=== PATIENT | female | born 1995 | race African-American/Black ===

== ENCOUNTER 2016-06-26 13:26 | Emergency (ER) | payer SELFPAY ==
[2016-06-26 13:33] VITALS: BMI 32.9
[2016-06-26 14:30] VITALS: BP 105/66; PULSE 91; TEMP 97.6
[2016-06-26 14:57] LABS: URINE APPEARANCE CLEAR; URINE BILIRUBIN NEGATIVE (NEGATIVE); URINE BLOOD NEGATIVE (NEGATIVE); URINE COLOR YELLOW; URINE GLUCOSE (UA) NEGATIVE (NEGATIVE); URINE KETONE TRACE (NEGATIVE); URINE LEUK ESTERASE NEGATIVE (NEGATIVE); URINE NITRITE NEGATIVE (NEGATIVE); URINE PROTEIN NEGATIVE (NEGATIVE); URINE UROBILINOGEN 2.0 E.U/dl E.U./dl (0.2-1.0)
[2016-06-26 15:16] LABS: URINE MARIJUANA THC NEGATIVE ng/ml (CUTOFF=50)
== END 2016-06-26 14:43 | disposition left against medical advice (07) ==
LOC: JER 13:26
DX: O26.892 Other specified pregnancy related conditions, second trimester (principal); R10.30 Lower abdominal pain, unspecified; Z3A.24 24 weeks gestation of pregnancy
CPT/HCPCS: 80307; 81003; 87086; 99281-25

== ENCOUNTER 2017-08-30 22:50 | Emergency (ER) | payer OTHER ==
[2017-08-30 23:17] VITALS: BP 116/58; PULSE 89; TEMP 98.1; BMI 28.8
--- NOTE | 2017-08-30 23:56 | PDOC ---
History of Present Illness - General Chief Complaint: Pain Stated Complaint: BACK PAIN Time Seen by Provider: 08/30/17 23:47 History Source: Patient Exam Limitations: No Limitations - History of Present Illness Initial Comments: 21 yo F approximately 2 months (had a prior confirmatory ultrasound) presents with pelvic cramping pain. She states the pain was moderate when she arrived in ED but now the pain is mild. She denies fever, chills, urinary urgency. +Urinary frequency. She has not been taking enough fluids PO. She also states that she prefers not to wear underwear, which she was counseled to do in a past . Denies vomiting, diarrhea, vaginal bleeding. Past History - Past Medical History Allergies/Adverse Reactions: Allergies Allergy/AdvReac Type Severity Reaction Status Date / Time No Known Allergies Allergy Verified 09/07/16 02:37 Home Medications: Ambulatory Orders Cephalexin Monohydrate [Keflex -] 500 mg PO BID #10 capsule 08/31/17 - Reproductive History Is Patient Now?: Yes - Suicide/Smoking/Psychosocial Hx Smoking History: Never smoked Have you smoked in the past 12 months: No Information on smoking cessation initiated: No Hx Alcohol Use: No Drug/Substance Use Hx: No Substance Use Type: None Review of Systems - Review of Systems Able to Perform ROS?: Yes Comments:: GENERAL/CONSTITUTIONAL: No fever or chills. No weakness. HEAD, EYES, EARS, NOSE AND THROAT: No change in vision. No ear pain or discharge. No sore throat. CARDIOVASCULAR: No chest pain or shortness of breath. RESPIRATORY: No cough, wheezing, or hemoptysis. GASTROINTESTINAL: No nausea, vomiting, diarrhea or constipation. GENITOURINARY: No dysuria, frequency, or change in urination. MUSCULOSKELETAL: No joint or muscle swelling or pain. No neck or back pain. SKIN: No rash NEUROLOGIC: No headache, vertigo, loss of consciousness, or change in strength/ sensation. ENDOCRINE: No increased thirst. No abnormal weight change. HEMATOLOGIC/LYMPHATIC: No anemia, easy bleeding, or history of blood clots. ALLERGIC/IMMUNOLOGIC: No hives or skin allergy. *Physical Exam - Vital Signs Last Vital Signs Temp Pulse Resp BP Pulse Ox 98.1 F 89 18 116/58 99 08/30/17 23:12 08/30/17 23:12 08/30/17 23:12 08/30/17 23:12 08/30/17 23:12 - Physical Exam Comments: GENERAL: Awake, alert, and fully oriented, in no acute distress HEAD: No signs of trauma EYES: PERRLA, EOMI, sclera anicteric, conjunctiva clear ENT: Auricles normal inspection, hearing grossly normal, nares patent, oropharynx clear without exudates. Dry mucosa NECK: Normal ROM, supple, no lymphadenopathy, JVD, or masses LUNGS: Breath sounds equal, clear to auscultation bilaterally. No wheezes, and no crackles HEART: Regular rate and rhythm, normal S1 and S2, no murmurs, rubs or gallops ABDOMEN: Soft, +minimal suprapubic tenderness. Normoactive bowel sounds. No guarding, no rebound. No masses EXTREMITIES: Normal range of motion, no edema. No clubbing or cyanosis. No cords, erythema, or tenderness NEUROLOGICAL: Cranial nerves II through XII grossly intact. Normal speech, normal gait SKIN: Warm, Dry, normal turgor, no rashes or lesions noted. Medical Decision Making - Medical Decision Making 08/31/17 00:08 Pt initially presented c/o abd cramping, stating it improved on arrival in ED. She states she does not wish to have any further workup, as she is feeling better. Urine shows +LE, and it is cloudy and malodorous. Will treat with keflex. Counseled patient to wear underwear to prevent infections. Also counseled her to drink plenty of fluids to avoid dehydration, as it may cause cramping. If her pain returns or worsens, return to the ED immediately. *DC/Admit/Observation/Transfer Diagnosis at time of Disposition: Abdominal pain in - Discharge Dispostion Disposition: HOME Condition at time of disposition: Stable Decision to Admit order: No - Referrals - Patient Instructions Printed Discharge Instructions: DI for Abdominal Pain -- Early - Post Discharge Activity
[2017-08-31 00:01] LABS: URINE APPEARANCE SLCLOUDY; URINE BILIRUBIN NEGATIVE (<2.0 mg/dL); URINE COLOR YELLOW; URINE GLUCOSE (UA) NEGATIVE (NEGATIVE); URINE KETONE TRACE (NEGATIVE); URINE NITRITE NEGATIVE (NEGATIVE); URINE PROTEIN NEGATIVE (NEGATIVE)
[2017-08-31 00:07] LABS: HCG,QUALITATIVE URINE POSITIVE; URINE LEUK ESTERASE 1+ (NEGATIVE)
[2017-08-31 00:10] LABS: CALCIUM OXALATE CRYSTALS RARE /hpf (NONE SEEN); EPI CELLS MODERATE /HPF (FEW); URINE BACTERIA FEW /hpf (NONE SEEN); URINE HYALINE CAST 1 /lpf; URINE MUCUS FEW
== END 2017-08-31 00:17 | disposition home or self-care (01) ==
LOC: JER 22:50
DX: O26.891 Other specified pregnancy related conditions, first trimester (principal); O23.31 Infections of other parts of urinary tract in pregnancy, first trimester; R10.2 Pelvic and perineal pain; Z3A.08 8 weeks gestation of pregnancy
CPT/HCPCS: 81003; 81015; 84703; 99283-25

== ENCOUNTER 2018-10-27 08:47 | Emergency (ER) | payer OTHER ==
[2018-10-27] MEDS ORDERED: SODIUM CHLORIDE 0.9% 1000 ML INFUS.BAG IV ONE ×3 (08:58→13:35)
[2018-10-27 08:59] VITALS: BMI 28.6
[2018-10-27] MEDS ORDERED: morphine CARPU-JECT 4 MG/1 ML DISP.SYRIN IVPUSH ONE ×3 (09:07→14:24)
[2018-10-27] MEDS ORDERED: morphine SULFATE 4 MG/ML VIAL ONE ×2 (09:08→14:36)
[2018-10-27 09:14] LABS: BASO % 0.7 % (0-2.0); EOS % 2.9 % (0-4.5); HEMATOCRIT 36.2 % (32.4-45.2); HEMOGLOBIN 12.3 GM/dL (10.7-15.3); LYMPH % 34.3 % (8-40); MCHC 33.9 g/dl (32.0-36.0); MEAN CELL VOLUME 73.9 fl (80-96); MONO % 4.9 % (3.8-10.2); NEUT % 57.2 % (42.8-82.8); PLATELET COUNT 298 K/MM3 (134-434); RDW 17.5 % (11.6-15.6); WHITE BLOOD COUNT 9.4 K/mm3 (4.0-10.0)
--- NOTE | 2018-10-27 09:16 | PDOC ---
History of Present Illness - General Chief Complaint: Pain, Acute Stated Complaint: RT SIDE PAIN,VOMITING Time Seen by Provider: 10/27/18 08:54 History Source: Patient, EMS Exam Limitations: No Limitations - History of Present Illness Initial Comments: 10/27/18 09:11 23F with PMHx of UTI, multiple abortions (10 abortions, 2 miscarriages, 1 live ) who presents to the ER with sudden onset RUQ and R flank pain. The patient states that she developed sudden onset RUQ and R flank pain which is constant, sharp, radiating from her RUQ to her R flank, associated with nausea and vomiting w/o fever, chills, dysuria, hematuria. Pt is on depot shot and states LMP 2 months ago, denies recent sexual activity. Denies trauma, EtOH, tobacco, and illicit drug use. Denies ever having pain like this in the past. Admits to umbilical hernia surgery "when she was a baby" but has not had any abdominal surgeries since. Past History - Past Medical History Allergies/Adverse Reactions: Allergies Allergy/AdvReac Type Severity Reaction Status Date / Time No Known Allergies Allergy Verified 03/02/18 11:10 Home Medications: Ambulatory Orders NK [No Known Home Medication] 03/02/18 COPD: No - Suicide/Smoking/Psychosocial Hx Smoking History: Current every day smoker Have you smoked in the past 12 months: Yes Number of Cigarettes Smoked Daily: 2 Information on smoking cessation initiated: No Hx Alcohol Use: No Drug/Substance Use Hx: No Substance Use Type: None Review of Systems - Review of Systems Able to Perform ROS?: Yes Comments:: 10/27/18 09:27 GENERAL/CONSTITUTIONAL: No fever or chills. No weakness. HEAD, EYES, EARS, NOSE AND THROAT: No change in vision. No ear pain or discharge. No sore throat. CARDIOVASCULAR: No chest pain, palpitations, or lightheadedness. RESPIRATORY: No cough, wheezing, shortness of breath, or hemoptysis. GASTROINTESTINAL: + for RUQ abd pain, nausea, and vomiting. No diarrhea or constipation. GENITOURINARY: + for R flank pain. No dysuria, frequency, hematuria, or change in urination. MUSCULOSKELETAL: No joint or muscle swelling or pain. No neck or back pain. SKIN: No rash or lesions. NEUROLOGIC: No headache, numbness, tingling, focal weakness, loss of consciousness, or change in strength/sensation. Is the patient limited Samoan proficient: No *Physical Exam - Vital Signs Last Vital Signs Temp Pulse Resp BP Pulse Ox 100 H 24 H 138/90 100 10/27/18 08:54 10/27/18 08:54 10/27/18 08:54 10/27/18 08:54 - Physical Exam Comments: 10/27/18 09:29 GENERAL: Well developed, well nourished. Awake and alert. No acute distress. HEENT: Normocephalic, atraumatic. Hearing grossly normal. Moist mucous membranes. PERRLA, EOMI. No conjunctival pallor. Sclera are non-icteric. NECK: Supple. Full ROM. No JVD. CARDIOVASCULAR: Regular rate and rhythm. No murmurs, rubs, or gallops. PULMONARY: No evidence of respiratory distress. Lungs clear to auscultation bilaterally. No wheezing, rales or rhonchi. ABDOMINAL: Soft. TTP in RUQ, + Goldberg's sign. Non-distended. No rebound or guarding. GENITOURINARY: R CVA tenderness. MUSCULOSKELETAL: Normal range of motion at all joints. No bony deformities or tenderness. EXTREMITIES: No cyanosis. No clubbing. No edema. No calf tenderness or swelling. SKIN: Warm and dry. Normal capillary refill. No rashes. No jaundice. NEUROLOGICAL: Alert, awake, appropriate. Cranial nerves 2-12 grossly intact. Normal speech. Gait is normal without ataxia. PSYCHIATRIC: Cooperative. Good eye contact. Appropriate mood and affect. ED Treatment Course - LABORATORY CBC & Chemistry Diagram: 10/27/18 09:05 10/27/18 09:05 - RADIOLOGY Radiology Studies Ordered: Category Date Time Status ABDOMEN US -LIMITED [US] Stat Ultrasound 10/27/18 09:08 Ordered KIDNEY / RENAL US [US] Stat Ultrasound 10/27/18 09:08 Ordered - Medications Given in the ED: ED Medications Discontinued Medications Generic Name Dose Route Start Last Admin Trade Name Freq PRN Reason Stop Dose Admin Sodium Chloride 1,000 ml 10/27/18 08:58 10/27/18 09:07 Normal Saline - IV 10/27/18 08:59 1,000 ml ONCE ONE Administration Medical Decision Making - Medical Decision Making 10/27/18 09:30 23F with a PMH of multiple abortions and UTI's who presents to the ER with RUQ pain and R flank pain concerning for nephrolithiasis vs cholecystitis vs other RUQ pathology. Pending labs and imaging including CBC, CMP, lipase, RUQ US and renal US. 4mg morphine ordered for pt comfort. 10/27/18 10:17 Labs WNL. Both US negative. Pt continues to be tender and states that "it might be gas because I was holding in my farts all of yesterday". However, due to tenderness, will obtain CTAP. Pt aware. Upreg negative. Lipase negative. Will give 1 g acetaminophen IV. 10/27/18 13:01 Pt continues to have tenderness. CTAP shows elongated gallbladder without evidence of acute pathology. Dr. Orlando, surgery, paged as pt has intractable abdominal pain w/ nausea. Will give 2mg morphine. 10/27/18 13:35 Case d/w Dr. Orlando, surgery, who recommends continuing hydration and will see the patient at bedside. 10/27/18 16:36 Dr. Orlando saw pt and does not believe this is related to her gallbladder. Pt now requesting flexiril and states that she's had this pain before (she initially told me she has never had this pain before). Will d/c with PCP f/u. *DC/Admit/Observation/Transfer Diagnosis at time of Disposition: Abdominal pain Qualifiers: Abdominal location: right upper quadrant Qualified Code(s): R10.11 - Right upper quadrant pain Back pain Qualifiers: Back pain location: low back pain Chronicity: unspecified Back pain laterality : unspecified Sciatica presence: without sciatica Qualified Code(s): M54.5 - Low back pain - Discharge Dispostion Disposition: HOME Condition at time of disposition: Stable Decision to Admit order: No - Referrals Referrals: Elliott Holguin MD [Primary Care Provider] - - Patient Instructions Printed Discharge Instructions: DI for Abdominal Pain-Adult Additional Instructions: Your ER visit is not complete until your follow up with your primary care physician. Please follow up with your primary care physician in 1-2 days. Please return to the ER if you have any signs or symptoms of chest pain, shortness of breath, uncontrollable fever, chills, nausea, vomiting, numbness, tingling, or weakness in any part of your body, changes in vision, or slurred speech. Please take your medications as prescribed. Please return to the ER if symptoms persist, worsen, or new symptoms arise. - Post Discharge Activity
[2018-10-27 09:21] LABS: URINE APPEARANCE CLOUDY; URINE BILIRUBIN NEGATIVE (NEGATIVE); URINE COLOR YELLOW; URINE GLUCOSE (UA) NEGATIVE (NEGATIVE); URINE KETONE NEGATIVE (NEGATIVE); URINE LEUK ESTERASE NEGATIVE (NEGATIVE); URINE NITRITE NEGATIVE (NEGATIVE); URINE PROTEIN NEGATIVE (NEGATIVE)
[2018-10-27 09:28] LABS: INR 0.91 (0.83-1.09); PROTHROMBIN TIME (PATIENT) 10.7 SEC (9.7-13.0)
[2018-10-27 09:48] LABS: ALBUMIN 3.9 g/dl (3.4-5.0); BILIRUBIN,TOTAL 0.5 mg/dL (0.2-1); BLOOD UREA NITROGEN 15.1 mg/dL (7-18); CALCIUM 9.4 mg/dL (8.5-10.1); POTASSIUM 3.9 mmol/L (3.5-5.1); TOT PROT 7.5 g/dl (6.4-8.2)
[2018-10-27] MEDS ORDERED: ACETAMINOPHEN 1000 MG/100 ML VIAL (NON FORMULARY) IVPB ONE (10:15)
[2018-10-27] MEDS ORDERED: SIMETHICONE 80 MG TAB.CHEW (FP) PO ONE (10:15)
--- NOTE | 2018-10-27 10:21 | PDOC ---
Attending Attestation - Resident Resident Name: Obdulio Huntley - ED Attending Attestation I have performed the following: I have examined & evaluated the patient, The case was reviewed & discussed with the resident, I agree w/resident's findings & plan, Exceptions are as noted - HPI HPI: 10/27/18 10:16 23 F , presenting to ED with right sided abdominal pain. Pt reports sudden onset cramping pain today, localized to her RUQ and radiating to her back. Denies F/C. Endorses vomiting. Denies diarrhea. Pt has had previous umbilical hernia surgery as a child. No other surgeries. - Physicial Exam PE: 10/27/18 10:20 "GENERAL: Awake, alert, and fully oriented, in no acute distress. HEAD: No signs of trauma EYES: PERRLA, EOMI, sclera anicteric, conjunctiva clear ENT: Auricles normal inspection, hearing grossly normal, nares patent, oropharynx clear without exudates. Moist mucosa NECK: Nontender, no stepoffs, Normal ROM, supple, no lymphadenopathy, JVD, or masses LUNGS: Breath sounds equal, clear to auscultation bilaterally. No wheezes, and no crackles HEART: Regular rate and rhythm, normal S1 and S2, no murmurs, rubs or gallops ABDOMEN: + diffuse tenderness, most pronounced in RUQ, normoactive bowel sounds. No guarding, no rebound. No masses EXTREMITIES: Normal range of motion, no edema. No clubbing or cyanosis. No cords, erythema, or tenderness NEUROLOGICAL: Cranial nerves II through XII intact. 5/5 strength and sensation in all extremities, Normal speech, normal gait, normal cerebellar function SKIN: Warm, Dry, normal turgor, no rashes or lesions noted. - Medical Decision Making 10/27/18 10:20 23 F with diffuse abdominal pain, most focal in RUQ, with N+V. - US negative for alvina - Labs unremarkable - Will obtain CT scan - GI cocktail, pain control 10/27/18 16:34 CT notable for large GB Dr. Orlando consulted. Per her evaluation, no surgical emergency. Pt re-evaluated, pain is improved. Pt tolerating PO. Pt encouraged to f/u with her PMD. Pt is well appearing, with normal vitals. Clinically stable for DC at this time. I discussed the physical exam findings, ancillary test results and final diagnoses with the patient. I answered all of the patient's questions. The patient was satisfied with the care received and felt comfortable with the discharge plan and treatment plan. The patient agrees to follow up with the primary care physician within 24-72 hours.
[2018-10-27] MEDS ORDERED: ONDANSETRON 4 MG/2 ML VIAL IVPUSH ONE (10:22)
[2018-10-27] MEDS ORDERED: ONDANSETRON 4 MG/2 ML VIAL ONE (10:25)
[2018-10-27] MEDS ORDERED: ACETAMINOPHEN INJECTION 100 ML IVPB ONE (10:41)
[2018-10-27 13:24] VITALS: BP 138/86; PULSE 91
[2018-10-27] MEDS ORDERED: CYCLOBENZAPRINE HCL 10 MG TABLET (FP) PO ONE (16:38)
[2018-10-27] MEDS ORDERED: CYCLOBENZAPRINE HCL 10 MG TABLET (FP) ONE (16:43)
--- NOTE | 2018-10-27 16:47 | CONSULT ---
Consult Consult Specialty:: General Surgery Referred by:: Carlton Huntley Reason for Consultation:: RUQ pain, N/V - History of Present Illness Chief Complaint: RUQ pain, n/v History of Present Illness: 23yo F with no reported PMH, PSH of only umbilical hernia repair as baby, presented with RUQ pain beginning yesterday morning, radiating around laterally toward back. This was associated with some nausea but no vomiting until she came to ER today, when she did have some yellow emesis. Last night, she had Northern [place] food, rice and peas, etc. She admits the pain comes every 3 weeks or so , and she has been seen in ER and the ER at the hospital down the street for it within the last month. She said they wanted to do a CT scan, but she was scared of the IV contrast; she did have CT here. She usually takes a muscle relaxant prn which helps, or some other pill (not sure what). Her last Rx for these was at [facility] in [address], and she thinks the other pill was a steroid. When asked what she takes these for, she indicates the RUQ pain. She reports having scoliosis, and going to PT at [facility] three times weekly/every other day for it. She also states she has had injections for her back/the pain. Asked about her PMD, she admits she has not been in "a long time. " She has had IV tylenol and 6mg morphine in ER, and still c/o pain. She is asking for a muscle relaxant. She also fell asleep twice during our conversation and my exam. Her labs are all normal, though do indicate some dehydration. US and CT showed very elongated gallbladder with stones, but no clear signs of cholecystitis. No acute findings on CT otherwise. She has had IV fluids as well. She states she is in a [facility], with three kids, and "there is a lot going on in my life right now." She did recently get a Depo shot. Surgery was asked to assess for pain not relieved by the morphine. She is seen and examined in ER holding - was seen ambulating back from desk. She relates the above history, but is vague on specifics. She is seen at [facility], but does not know the name of her regular doctor. She appears uncomfortable, but is able to calm intermittently and as noted above, fell asleep twice. - History Source History Provided By: Patient Limitations to Obtaining History: Poor Historian - Past Medical History ...LMP Comment: at least 2 months (on Depo) ...: No Psych: Yes: Anxiety Musculoskeletal: Yes: Other (scoliosis) - Past Surgical History Past Surgical History: Yes: Hernia Repair (umbilical as baby) Additional Surgical History: abortions - Alcohol/Substance Use Hx Alcohol Use: Yes (occ/social) History of Substance Use: reports: None - Smoking History Smoking history: Current every day smoker Have you smoked in the past 12 months: Yes Aproximately how many cigarettes per day: 2 - Social History Usual Living Arrangement: Other (in [facility] with children) ADL: Independent Home Medications - Allergies Allergies/Adverse Reactions: Allergies Allergy/AdvReac Type Severity Reaction Status Date / Time No Known Allergies Allergy Verified 03/02/18 11:10 - Home Medications Home Medications: Ambulatory Orders NK [No Known Home Medication] 03/02/18 Home Medications (free text): states she uses a muscle relaxant PRN but does not have any more. also thinks she was recently given a steroid Rx (several pills worth), which she took as needed for her pain. also on Depo/ control Family Disease History - Family Disease History Family History: Unremarkable (noncontributory) Review of Systems - Review of Systems Constitutional: denies: Chills, Fever Eyes: denies: Blurred Vision, Recent Change in Vision HENT: denies: Difficult Swallowing, Throat Pain Neck: denies: Swollen Glands, Tenderness Cardiovascular: denies: Chest Pain, Palpitations Respiratory: denies: Cough, SOB Gastrointestinal: reports: Abdominal Pain (with hpi), Nausea (with hpi), Vomiting (in ER today, yellow). denies: Constipation, Diarrhea Genitourinary: denies: Burning, Dysuria Musculoskeletal: reports: Back Pain (goes to PT for scoliosis tiw). denies: Joint Pain, Muscle Pain Integumentary: denies: Change in Color, Rash Neurological: denies: Dizziness, Headache, Seizure Psychiatric: reports: Anxiety. denies: Depression Physical Exam Vital Signs: Vital Signs Temperature Pulse Rate 91 H 10/27/18 13:23 Respiratory Rate 17 10/27/18 13:23 Blood Pressure 138/86 10/27/18 13:23 O2 Sat by Pulse Oximetry (%) 98 10/27/18 13:23 Constitutional: Yes: Well Nourished, Anxious, Moderate Distress (seems in pain, but also falls asleep during conversation/exam) Eyes: Yes: Conjunctiva Clear, EOM Intact HENT: Yes: Atraumatic, Normocephalic Neck: Yes: Supple, Trachea Midline Cardiovascular: Yes: Regular Rate and Rhythm, Tachycardia (mild) Respiratory: Yes: Regular, CTA Bilaterally Gastrointestinal: Yes: Soft, Abdomen, Obese, Hernia (tiny umbilical defect palpable), Hypoactive Bowel Sounds, Tenderness (RUQ/RLQ, also along midline, less on left side - not tender LUQ), Tenderness, Epigastrium. No: Distention, Tenderness, Rebound ...Rectal Exam: Yes: Deferred Renal/: No: CVA Tenderness - Left, CVA Tenderness - Right Musculoskeletal: No: Joint Stiffness, Joint Swelling Extremities: No: Cool, Cyanosis Edema: No Peripheral Pulses WNL: Yes Integumentary: Yes: Body Piercing (tongue), Tattoos. No: Jaundice, Rash Neurological: Yes: Alert, Oriented. No: Unsteady Gait Psychiatric: Yes: Alert, Oriented Labs: CBC, BMP 10/27/18 09:05 10/27/18 09:05 CMP Sodium 139 mmol/L (136-145) 10/27/18 09:05 Potassium 3.9 mmol/L (3.5-5.1) 10/27/18 09:05 Chloride 106 mmol/L (98-107) 10/27/18 09:05 Carbon Dioxide 28 mmol/L (21-32) 10/27/18 09:05 Anion Gap 6 MMOL/L (8-16) L 10/27/18 09:05 BUN 15.1 mg/dL (7-18) 10/27/18 09:05 Creatinine 1.0 mg/dL (0.55-1.3) 10/27/18 09:05 Est GFR (CKD-EPI)AfAm 91.96 10/27/18 09:05 Est GFR (CKD-EPI)NonAf 79.35 10/27/18 09:05 Random Glucose 112 mg/dL (74-106) H 10/27/18 09:05 Calcium 9.4 mg/dL (8.5-10.1) 10/27/18 09:05 Total Bilirubin 0.5 mg/dL (0.2-1) 10/27/18 09:05 AST 13 U/L (15-37) L 10/27/18 09:05 ALT 21 U/L (13-61) 10/27/18 09:05 Alkaline Phosphatase 71 U/L (45-117) 10/27/18 09:05 Total Protein 7.5 g/dl (6.4-8.2) 10/27/18 09:05 Albumin 3.9 g/dl (3.4-5.0) 10/27/18 09:05 Lipase 67 U/L (73-393) L 10/27/18 09:05 INR, PTT INR 0.91 (0.83-1.09) 10/27/18 09:05 Urine Test Results Urine Color Yellow 10/27/18 09:04 Urine Appearance Cloudy 10/27/18 09:04 Urine pH 7.0 (5.0-8.0) 10/27/18 09:04 Ur Specific [place] 1.026 (1.010-1.035) 10/27/18 09:04 Urine Protein Negative (NEGATIVE) 10/27/18 09:04 Urine Glucose (UA) Negative (NEGATIVE) 10/27/18 09:04 Urine Ketones Negative (NEGATIVE) 10/27/18 09:04 Urine Blood Negative (NEGATIVE) 10/27/18 09:04 Urine Nitrite Negative (NEGATIVE) 10/27/18 09:04 Urine Bilirubin Negative (NEGATIVE) 10/27/18 09:04 Ur Leukocyte Esterase Negative (NEGATIVE) 10/27/18 09:04 somewhat dehydrated normal wbc, LFTs, lipase Imaging - Results Cat Scan: Report Reviewed, Image Reviewed (images reviewed - very elongated gallbladder, extends to umbilicus, no bowel dilation, no free air or fluid, no appendicitis or diverticulitis, probable umbilical hernia present) Ultrasound: Report Reviewed, Image Reviewed (multiple gallstones, no ductal dilation, no fluid, cbd normal, elongated gallbladder) Problem List - Problems (1) RUQ pain Code(s): R10.11 - RIGHT UPPER QUADRANT PAIN (2) Right upper quadrant abdominal tenderness without rebound tenderness Code(s): R10.811 - RIGHT UPPER QUADRANT ABDOMINAL TENDERNESS (3) Nausea and vomiting Code(s): R11.2 - NAUSEA WITH VOMITING, UNSPECIFIED Qualifiers: Vomiting type: unspecified Vomiting Intractability: non-intractable Qualified Code(s): R11.2 - Nausea with vomiting, unspecified (4) Dehydration Code(s): E86.0 - DEHYDRATION (5) Calculus of gallbladder without cholecystitis without obstruction Code(s): K80.20 - CALCULUS OF GALLBLADDER W/O CHOLECYSTITIS W/O OBSTRUCTION Assessment/Plan Spoke with patient's pharmacy - 10/06 she picked up Motrin 600mg and Augmentin; she picked up Prednisone 50mg daily x 5 days, but did not product picker Rx for flexeril 10mg. Prednisone was prescribed by Dr. Bola Gar; others by Dr. Shiva Calderón - both are [facility] ER physicians. Inquiry there by ER indicated that steroid was for a rash. She is seen frequently in ER, for various complaints of low acuity. Pt is asking for muscle relaxant I-Stop checked with Dr. Mireles - pt has not filled controlled Rx Will defer to ER regarding pain medication - suggest IV ibuprofen IV fluid hydration Strongly urged patient to f/u with her PMD No acute findings on imaging, no acute surgical issues identified As she is able to fall asleep while c/o the pain, though she does seem tender, I do not suspect any surgical etiology. Unclear significance of markedly elongated gallbladder + gallstones, but do not suspect biliary source of her pain ok for PO trial and d/c home per ER Thank you for the opportunity to participate in the care of this patient.
== END 2018-10-27 17:00 | disposition home or self-care (01) ==
LOC: JER 08:47
PROC: 3E033NZ Introduction of Analgesics, Hypnotics, Sedatives into Peripheral Vein, Percutaneous Approach (ICD-10-PCS; principal; 2018-10-27)
PROC: 3E033GC Introduction of Other Therapeutic Substance into Peripheral Vein, Percutaneous Approach (ICD-10-PCS; 2018-10-27)
PROC: 3E033NZ Introduction of Analgesics, Hypnotics, Sedatives into Peripheral Vein, Percutaneous Approach (ICD-10-PCS; 2018-10-27)
PROC: 3E033NZ Introduction of Analgesics, Hypnotics, Sedatives into Peripheral Vein, Percutaneous Approach (ICD-10-PCS; 2018-10-27)
PROC: 3E033NZ Introduction of Analgesics, Hypnotics, Sedatives into Peripheral Vein, Percutaneous Approach (ICD-10-PCS; 2018-10-27)
DX: K80.20 Calculus of gallbladder without cholecystitis without obstruction (principal); E86.0 Dehydration
CPT/HCPCS: 36415; 74177-TC; 76705-TC; 76775-TC; 80053; 81003; 83690; 84703; 85025; 85610; 86850; 86900; 86901; 87086; 96374; 96375; 96376; 99283-25; J0131; J7030

== ENCOUNTER 2021-10-04 21:17 | Emergency (ER) | payer OTHER ==
[2021-10-04 21:37] VITALS: BP 114/80; PULSE 98; RESP 18; TEMP 98; BMI 27.8
[2021-10-04] MEDS ORDERED: IBUPROFEN 600 MG TABLET (FP) PO ONE ×2 (22:59→23:10)
== END 2021-10-04 23:50 | disposition home or self-care (01) ==
LOC: JER 21:17 → JERFT 21:17 → JER 23:50
DX: K02.9 Dental caries, unspecified (principal)
CPT/HCPCS: 99283-25

== ENCOUNTER 2022-06-24 23:11 | Emergency (ER) | payer OTHER ==
[2022-06-24 23:17] VITALS: BP 113/75; PULSE 96; RESP 18; TEMP 98.1; BMI 30.2
[2022-06-24 23:48] LABS: EPI CELLS >36 /uL (0-25.1); HYALINE CASTS 17 /uL (0-3.1); PH,URINE 6.5 (5.0-8.0); URINE APPEARANCE CLOUDY; URINE BACTERIA 2259 /uL (0-1359); URINE BILIRUBIN NEGATIVE (NEGATIVE); URINE COLOR YELLOW; URINE GLUCOSE (UA) NEGATIVE (NEGATIVE); URINE KETONE NEGATIVE (NEGATIVE); URINE LEUK ESTERASE 2+ (NEGATIVE); URINE NITRITE NEGATIVE (NEGATIVE); URINE PROTEIN 1+ (NEGATIVE); URINE RBC 398 /uL (0-23.9); URINE WBC 855 /uL (0-25.8)
[2022-06-25] MEDS ORDERED: CEPHALEXIN MONOHYDRATE 500 MG CAPSULE (UD) PO ONE (00:21)
[2022-06-25] MEDS ORDERED: CEPHALEXIN MONOHYDRATE 500 MG CAPSULE (UD) ONE (00:23)
== END 2022-06-25 00:42 | disposition home or self-care (01) ==
LOC: JER 23:11
DX: R35.0 Frequency of micturition (principal); R30.0 Dysuria; R39.15 Urgency of urination; R31.9 Hematuria, unspecified; R11.2 Nausea with vomiting, unspecified
CPT/HCPCS: 81003; 84703; 87086; 87186; 99283-25

== ENCOUNTER 2022-08-11 00:22 | Emergency (ER) | payer OTHER ==
[2022-08-11 00:33] VITALS: BMI 35.1
[2022-08-11] MEDS ORDERED: ACETAMINOPHEN 1000 MG/100 ML BAG IVPB ONE (01:27)
[2022-08-11] MEDS ORDERED: FAMOTIDINE 20 MG/50 ML IVPB 20 MG/50 ML MG IVPB ONE ×2 (01:27→01:48)
[2022-08-11] MEDS ORDERED: ACETAMINOPHEN INJECTION 100 ML IVPB ONE (01:48)
[2022-08-11 02:32] LABS: BASO % 0.4 % (0-2.0); EOS % 4.8 % (0-4.5); HEMATOCRIT 32.9 % (32.4-45.2); HEMOGLOBIN 11.2 GM/dL (10.7-15.3); MCH 26.4 pg (25.7-33.7); MCHC 34.1 g/dl (32.0-36.0); MEAN CELL VOLUME 77.5 fl (80-96); MEAN PLT VOLUME 6.8 fl (7.5-11.1); MONO % 7.2 % (3.8-10.2); NEUT % 41.6 % (42.8-82.8); PLATELET COUNT 511 10^3/uL (134-434); RBC 4.25 M/mm3 (3.60-5.2); RDW 14.6 % (11.6-15.6)
[2022-08-11 02:40] LABS: INR 0.97 (0.83-1.09); PROTHROMBIN TIME (PATIENT) 11.3 SEC (9.7-13.0)
[2022-08-11 02:42] LABS: ACTIVATED PTT 31.6 SECONDS (25.2-36.5)
[2022-08-11 02:49] LABS: POTASSIUM 4.4 mmol/L (3.5-5.1)
[2022-08-11 02:50] VITALS: BP 113/73; PULSE 87; RESP 16; TEMP 97.8
[2022-08-11 02:51] LABS: ALBUMIN 3.4 g/dl (3.4-5.0)
[2022-08-11 02:52] LABS: BLOOD UREA NITROGEN 10.8 mg/dL (7-18); MAGNESIUM 1.8 mg/dL (1.8-2.4)
[2022-08-11 02:55] LABS: CREATININE 0.9 mg/dL (0.55-1.3)
[2022-08-11 02:56] LABS: BILIRUBIN,TOTAL 0.4 mg/dL (0.2-1); TOT PROT 7.1 g/dl (6.4-8.2)
== END 2022-08-11 03:06 | disposition left against medical advice (07) ==
LOC: JER 00:22
PROC: 3E033GC Introduction of Other Therapeutic Substance into Peripheral Vein, Percutaneous Approach (ICD-10-PCS; principal; 2022-08-11)
PROC: 3E033NZ Introduction of Analgesics, Hypnotics, Sedatives into Peripheral Vein, Percutaneous Approach (ICD-10-PCS; 2022-08-11)
DX: G89.18 Other acute postprocedural pain (principal); R10.9 Unspecified abdominal pain
CPT/HCPCS: 36415; 80053; 83605; 83690; 83735; 85025; 85610; 85730; 86850; 86900; 86901; 87040; 93005; 93010; 99284-25

== ENCOUNTER 2023-08-31 17:19 | Emergency (ER) | payer OTHER ==
[2023-08-31 17:28] VITALS: BP 114/72; PULSE 88; RESP 20; TEMP 98.7; BMI 29.8
[2023-08-31 18:12] LABS: HCG,QUALITATIVE URINE Negative
[2023-08-31 18:17] LABS: EPI CELLS >36 /uL (0-25.1); HYALINE CASTS 1 /uL (0-3.1); URINE APPEARANCE CLEAR; URINE BACTERIA >9,000 /uL (0-1359); URINE BILIRUBIN NEGATIVE (NEGATIVE); URINE COLOR YELLOW; URINE GLUCOSE (UA) NEGATIVE (NEGATIVE); URINE KETONE TRACE (NEGATIVE); URINE LEUK ESTERASE TRACE (NEGATIVE); URINE NITRITE NEGATIVE (NEGATIVE); URINE PROTEIN TRACE (NEGATIVE); URINE RBC 14 /uL (0-23.9); URINE WBC 88 /uL (0-25.8)
[2023-08-31] MEDS ORDERED: NITROFURANTOIN MONOHYD/M-CRYST 100 MG CAPSULE PO ONE (19:35)
[2023-08-31] MEDS ORDERED: ACETAMINOPHEN 1000 MG/100 ML BAG IVPB ONE (19:40)
[2023-08-31 19:44] LABS: BASO % 0.5 % (0-2.0); EOS % 2.8 % (0-4.5); HEMATOCRIT 38.5 % (32.4-45.2); HEMOGLOBIN 13.4 GM/dL (10.7-15.3); LYMPH % 38.2 % (8-40); MCH 26.6 pg (25.7-33.7); MCHC 34.9 g/dl (32.0-36.0); MEAN CELL VOLUME 76.4 fl (80-96); MEAN PLT VOLUME 7.8 fl (7.5-11.1); MONO % 5.8 % (3.8-10.2); NEUT % 52.7 % (42.8-82.8); PLATELET COUNT 317 10^3/uL (134-434); RBC 5.03 M/mm3 (3.60-5.2); RDW 14.5 % (11.6-15.6); WHITE BLOOD COUNT 10.3 K/mm3 (4.0-10.0)
[2023-08-31 20:05] LABS: ALBUMIN 3.8 g/dl (3.4-5.0); CALCIUM 9.2 mg/dL (8.5-10.1)
[2023-08-31 20:09] LABS: CREATININE 0.9 mg/dL (0.55-1.3)
[2023-08-31 20:10] LABS: BILIRUBIN,TOTAL 0.5 mg/dL (0.2-1)
[2023-08-31 20:11] LABS: TOT PROT 7.4 g/dl (6.4-8.2)
== END 2023-08-31 20:26 | disposition left against medical advice (07) ==
LOC: JER 17:19
DX: N39.0 Urinary tract infection, site not specified (principal); R10.2 Pelvic and perineal pain; R10.31 Right lower quadrant pain; R10.32 Left lower quadrant pain; R11.0 Nausea; R35.0 Frequency of micturition
CPT/HCPCS: 36415; 80053; 81003; 83690; 84703; 85025; 87086; 87186; 99284-25